=== PATIENT | female | born 1970 | race Caucasian/White ===

== ENCOUNTER 2019-05-13 07:39 | Emergency (ER) | payer OTHER, SELFPAY ==
[2019-05-13 07:21] VITALS: BMI 25.0
[2019-05-13 07:40] VITALS: BP 152/94; PULSE 80; RESP 18; TEMP 36.8; O2SAT 97; BMI 25.0
--- NOTE | 2019-05-13 07:49 | RAD_ITS ---
STUDY: X-RAY - LEFT FOOT CLINICAL: Laceration of the dorsal distal foot, difficulty moving toes. TECHNIQUE: 3 view(s) of the foot. COMPARISON: None. FINDINGS: Normal talus, calcaneus, and tarsal bones. Normal visualized subtalar, talonavicular, calcaneocuboid, tarsal and tarsometatarsal articulations. Normal metatarsi. There is a marginal osteophyte of the lateral aspect of the first metatarsal head without joint space narrowing of the metatarsophalangeal joint of the great toe. Normal tibial and fibular sesamoid bones. Normal interphalangeal joint of the great toe. Normal phalanges of the great toe. Normal second through fifth metatarsophalangeal joints. Normal interphalangeal joints and phalanges of the lesser toes. The soft tissue structures are unremarkable. RAD/Foot min 3 Views IMPRESSION: Osteophyte of the first metatarsal head. Otherwise, unremarkable x-ray examination of the left foot. Electronically Signed: Herminio Florentino MD at 8:49 EST Tel , Service support ,
[2019-05-13 08:05] LABS: Hematocrit 40.1 % (37-47); Hemoglobin 13.5 g/dL (12.0-15.0); Mean Corp Hgb Conc 33.7 g/dL (32-36); Mean Corpuscular Hgb 30.3 pg (27.0-32.0); Mean Corpuscular Volume 90.1 fL (81-99); Mean Platelet Vol. 10.1 fl (6.2-12.0); Platelet Count 317 K/mm3 (150-450); RBC Distribution Width CV 12.5 % (11.6-14.6); RBC Distribution Width SD 41.2 fl (35.1-43.9); Red Blood Count 4.45 M/mm3 (4.2-5.4); White Blood Count 9.5 K/mm3 (4.4-11.0)
[2019-05-13] MEDS: Diphth,Pertuss(Acell),Tet Vac 0.5 ML Vial IM (08:15)
[2019-05-13 08:16] LABS: Anion Gap 5 (5-15); BUN 11 mg/dL (7-18); BUN/Creat Ratio 13.6 RATIO (10-20); Calcium,Total 8.8 mg/dL (8.5-10.1); Chloride 110 mmol/L (98-107); Creatinine, Serum 0.81 mg/dL (0.55-1.02); EST Glomerular Filtration Rate 80 mL/min (>60); Est Glom Filt Rate - Afr Amer 96 mL/min (>60); Glucose 106 mg/dL (74-106); Sodium Level 140 mmol/L (136-145)
--- NOTE | 2019-05-13 08:19 | ED.DCSUM_ITS ---
History of Present Illness Chief Complaint: Laceration Informant: Patient, Significant Other Onset: Today Context: Sudden Onset Quality: Laceration dorsal medial distal portion left foot Location: No pain Current Severity: - - None Maximum Severity: Moderate Worsened by: Initial injury Relieved by: Not applicable Associated Symptoms: Unable to move toe Narrative: Patient is a middle-aged woman with no sniffing past medical history presents with laceration dorsal surface of the distal medial dorsal left foot. Length of laceration is 3.0 cm. The left great toe is displaced plantarly. She is unable to extend. She denies altered sensation. She is on no anticoagulant. She reports no allergy to antibiotics. Last tetanus was greater than 10 years ago. - Past Medical History (1) No significant past medical history Status: Acute Past Medical History - Allergies and Home Meds Allergies/Adverse Reactions: Allergies No Known Allergies Allergy (Unverified 05/13/19 07:42) Primary Care Physician: Princess Galvan NP-C [Primary Care Provider] - Prior records reviewed: Yes Surgical History: noncontributory Lives: Spouse/ Significant Other Smoking Status: Never smoker Drugs: None Review of Systems General: Denies: Chills, Fever Musculoskeletal: Denies: Myalgias, Arthralgias, Neck pain, Back pain, Swelling, Extremity Pain Skin: Reports: Wounds. Denies: Rash, Abscess, Abrasions Neurological: Denies: Weakness, Parasthesia, Numbness Hematologic: Denies: Easy bruising, Easy bleeding Allergy: Denies: Uticaria, Swelling of the mouth Physical Exam Vital Signs/Narrative: Vital Signs Temp Pulse Resp BP Pulse Ox 05/13/19 07:40 98.3 F 80 18 152/94 H 97 Inital Vital Signs reviewed: Yes General: Well nourished, Well developed, No Acute Distress Head: Normocephalic, Atraumatic Eyes: Perrl, EOMI. Negative for: Pale conjunctiva, Scleral icterus Neck: Supple, Nontender, No JVD Cardiovascular: Regular rate, Regular rhythm Respiratory: No distress Extremities: Nontender, No edema, - - There is a transverse laceration distal dorsal medial side of the left foot. Patient is unable to extend her left great toe. There is no subungual hematoma noted. Sensations intact. Capillary refill is normal. DP and PT pulse are palpable. Skin: Normal color, No rash, Trauma Neurological: Alert, Oriented x3, Cranial nerves II-XII grossly intact, Normal Strength, Normal Sensation Psychological: Normal affect Diagnostic/Tx/Re-eval Chest X-Ray - ED: Read by ED Physician, - - Three-view x-ray of the foot was interpreted by me at 0826. There is soft tissue defect noted on the lateral. There is no foreign body, fracture or air in the joint. The soft tissue defect is over the mid third of the first metatarsal bone. 05/13/19 07:49 Xray Foot [Foot min 3 Views] [RAD] Stat Laboratory Results 05/13/19 05/13/19 07:59 07:59 WBC 9.5 RBC 4.45 Hgb 13.5 Hct 40.1 MCV 90.1 MCH 30.3 MCHC 33.7 RDW Std Deviation 41.2 RDW Coeff of Janey 12.5 Plt Count 317 MPV 10.1 Sodium 140 Potassium 4.0 Chloride 110 H Carbon Dioxide 25.0 Anion Gap 5 BUN 11 Creatinine 0.81 Estim Creat Clear Calc 81.70 Est GFR (MDRD) Af Amer 96 Est GFR (MDRD) Non-Af 80 BUN/Creatinine Ratio 13.6 Glucose 106 Calcium 8.8 Renal function is normal. CBC is unremarkable. - Medical Decision Making She sustained laceration of EPL. Unable to see the proximal or distal and. The laceration does not appear to go into the MTP joint. There is minimal tenderness to palpation over the proximal phalanx/first metatarsal. X-ray was obtained to evaluate for possible injury to the bone. Patient was made n.p.o. She received 1 g of Ancef. Case was discussed with Dr. Bailey who is on-call for podiatry. She states she would not be able to repair the tendon today. She requested to place patient in a posterior short leg plaster splint and the wound closed. She wants the patient to call and to make arrangements to repair tendon later this week. Procedures - Lacerations No standard instances Length: 1.18 in Depth: Tendon Shape: Linear Prep: Sterile Conditions, Adelia Laceration repair: Irrigated, Lidocaine Irrigated (ml): 250 Number of Sutures/[place]: 3 Suture Information: Ethilon, Simple, 5-0 - Lower Extremity Splints Lower Extremity Splint: Orthoglass, - - Posterior short leg Splint Fabrication: Fabricated Location: Left ED Disposition - Plan for ED Patient: Disposition: Home or Assisted Living Diagnosis: Laceration of left foot with tendon involvement Instructions: LACERATION, Foot Prescriptions: Cephalexin [Keflex] 250 mg PO Q8 #14 cap Transmission Status: Pending to [id number] Referrals: Princess Galvan NP-C [Primary Care Provider] - Francheska Bailey DPM [STAFF PHYSICIAN] - As soon as possible Additional Instructions: Must keep splint absolutely clean and dry. Do not place any weight on your left foot.
[2019-05-13] MEDS: Cefazolin 1 GM/50 ML BAG IV (08:47)
[2019-05-13 09:36] VITALS: BP 148/86; PULSE 77; RESP 14; O2SAT 99
== END 2019-05-13 10:01 | disposition home or self-care (01) ==
PROVIDERS: Emergency Provider Emergency Medicine; Family Provider Nurse Practitioner Family; PCP Nurse Practitioner Family
DX: S91.312A Laceration without foreign body, left foot, initial encounter (principal); S96.822A Laceration of other specified muscles and tendons at ankle and foot level, left foot, initial encounter; Y28.9XXA Contact with unspecified sharp object, undetermined intent, initial encounter; Y93.89 Activity, other specified; Y92.89 Other specified places as the place of occurrence of the external cause; Y99.8 Other external cause status
CPT/HCPCS: 12002; 29515; 73630; 80048; 85027; 90471; 90715; 96365; 99285; J7030; J7050; A4216

== ENCOUNTER 2019-05-17 12:31 | Day surgery (SDC) | payer SELFPAY ==
[2019-05-17] VITALS (10 sets, daily range): BP systolic 111–138; BP diastolic 72–91; PULSE 67–81; RESP 16; TEMP 36.4–37.5; O2SAT 97–100; BMI 25.7
[2019-05-17 13:14] LABS: Internal QC Validated? YES +Cl - CLEAR BKGD; Pregnancy, Urine Negative Negative
[2019-05-17] MEDS: Lactated Ringers 1,000 ML 80 ML IV (13:23)
[2019-05-17] MEDS: Cefazolin 2 GM in 0.9% Normal Saline 100 ML IV (13:44)
[2019-05-17] MEDS: Bupivacaine Mpf 0.5% 30 ML VIAL (14:05)
--- NOTE | 2019-05-17 14:54 | DCINST_ITS ---
Discharge Diet: No Restrictions Discharge Activity: May not drive while taking narcotic pain medications. Weight Bearing Status: No weight bearing Keep extremity elevated above heart level: Left Leg Call your doctor if your incision/area has: Continuous Slow Oozing, Sudden Increased Bleeding, Increased Pain/ Swelling, Increased Redness, Foul Smelling Discharge, Swelling at the incision site Call your doctor if you observe: Fever of 101 or Higher, Calf discomfort, Uncontrolled pain Cleanse incision/area with: Keep Dressing Clean & Dry, - - keep splint intact until follow up Allergies/Adverse Reactions: Allergies No Known Allergies Allergy (Verified 05/17/19 13:08) Medications to take at Discharge Ascorbic Acid [Vitamin C] 1,000 mg PO DAILY 05/13/19 Cephalexin [Keflex] 250 mg PO Q8 #14 cap 05/13/19 Ferrous Sulfate [Iron] 325 mg PO DAILY 05/13/19 ibuprofen 200 mg capsule 200 mg PO Q6H PRN 05/13/19 Cholecalciferol (VIT D3) [Vitamin D] 1,000 unit PO DAILY 05/16/19 Vitamin B Complex 1 ea PO DAILY 05/16/19 Primary Care Physician: Princess Galvan NP-C [Primary Care Provider] - Test Results: Test results from this visit will be discussed in further detail at your follow- up appointment, if applicable. Please Follow Up With: Francheska Bailey DPM When: [facility] in 1 week. Call [phone] sooner if questions. Proposed Discharge Date: 05/17/19
--- NOTE | 2019-05-17 14:58 | OP.PCM_ITS ---
Problem List (1) Spontaneous rupture of extensor tendon of left foot Status: Acute (2) Pain in left toe(s) Status: Acute (3) Laceration of left foot with complication Status: Acute Qualifiers: Report of Operation Date of Procedure: 05/17/19 Pre-Operative Diagnosis: laceration of left foot including extensor hallucis longus tendon Post-Operative Diagnosis: laceration of left foot including extensor hallucis longus tendon Surgery/Procedure Performed:: repair of extensor hallucis longus tendon lacerati on, left foot Description of Surgical Findings:: Hemostasis: Controlled with well-padded pneumatic left thigh tourniquet, 315 mmHg, and 22 minutes Materials: 2-0 Vicryl, 2-0 nylon, 4-0 nylon No specimens The patient tolerated the procedure and anesthesia well. She was transferred to the PACU with vital signs stable and vascular status intact to the left lower extremity. She has a splint including a hallux dorsiflexion bolster in place and will keep this intact. And tendon repair was successfully performed. Postoperative orders were entered electronically. She will be discharged home upon continued stability. grid molder: none - Surgeon: Francheska Bailey DPM. Count Room Clerk: Chip Mcintosh PGY1 Type of Anesthesia:: General, Local - Preoperative: One-to-one mixture of 1% lidocaine plain and 0.5% Marcaine plain administered in dorsal intermediate cutaneous, deep peroneal, and saphenous nerve block fashion, 10 cc Specimen's removed: none Estimated Blood Loss (mL): < 75 mL Description of Procedure: Indications: This 48-year-old female with significant past medical history of prior anemia, not current, sustained a laceration to her left foot and presented to the [facility] emergency room. This date of injury was on 05-13-2019 in which it is noted that she had lack of ability to dorsiflex the left hallux. An extensor hallucis longus tendon laceration was suspected. She denied other injuries or infection. The laceration was irrigated and and the skin was resutured with nylon. I recommended surgical repair of this tendon injury. The preoperative indication, planned procedure, possible benefits, risk, complications, and anticipated healing time management were discussed in detail with the patient. She understands and elects to proceed with surgery at this time. No guarantees were made. The informed surgical consent and limb were signed. She understands risk and complications may include but are not limited to the following: Pain, swelling, scarring, need for further surgery, recurrence, arthritis, loss of hallux function, chronic pain, numbness, blood clot, allergic reaction, loss of limb, function, life. I answered her questions. Her preoperative surgical clearance, history and physical exam, and diagnostic data including CBC, CMP were reviewed.gross abnormalities. Procedure in detail: The patient was transferred to the operating room via cart and placed on the operating room table in supine position. Final verification of the patient, surgery, limb designation was performed via the timeout procedure. Preoperative general anesthesia was administered by the anesthesia team and local anesthesia was administered by the podiatry team. IV antibiotics were administered preoperatively. The left lower extremity was prepped and draped in the usual aseptic manner. Attention was first directed to the initial laceration injury in which the sutures were removed. Blunt dissection was performed down through the deeper tissue with a hemostat. Care was taken to identify, protect, and retract any remaining neurovascular structures at this time and throughout the remainder of the surgery. Upon entry of the initial laceration site it is noted one of the dorsal medial arterial branches was severed at the time of the injury and this was not actively bleeding at this time. At this time the laceration was extended proximally laterally and distal medially utilizing initial laceration as part of the incision. The incision was extended approximately 1 1/2 cm on each end. Next the soft tissues were mobilized and the distal and proximal ends of the tendon were identified, mobilized, and tagged. No purulence, foreign body, or deep tissue necrosis was identified. The tendon edges appeared healthy without significant devitalization and end-to-end reapproximation was achieved with 2-0 nylon. It was not deemed necessary to use a tendon allograft at this time. The tendon was taken through passive range of motion of the hallux in the sagittal plane and this was gliding in a smooth manner and appeared to be stable. It was fixed in zero tension position and a bolster will be applied to the dressing to keep it in an overcorrected position to allow appropriate tendon healing. The wound was copiously irrigated with normal saline and the tourniquet was deflated at this time. Brisk capillary refill time was noted to the hallux and to the wound margins site. Deep closure was achieved with 2-0 Vicryl. The skin was next reapproximated with 4-0 nylon utilizing horizontal mattress and simple suture technique. A postoperative dressing consisting of Adaptic soaked in Betadine, gauze, Kerlix, abdominal pad, and Santos wrap were applied. Next a well-padded posterior mold with hallux dorsiflexion bolster was applied. The ankle was in neutral position while the hallux remained in an over corrected dorsiflexed position to protect the repair site. After procedure: The patient tolerated the procedure and anesthesia well. She was transported to the PACU vital signs stable and vascular status intact to the left lower extremity. She was advised to keep her splint including a bolster and postoperative dressing clean, dry, and intact until she follows up with the [facility] next week. She was advised to maintain a strict nonweightbearing status to left lower extremity with crutches or knee roller for assistance. No specimens were sent. She will follow-up at the [facility] center in 1 week. She was provided with a pain medication prescription, Shubuta, and was advised on safe and proper use. All of her postoperative orders were entered electronically. Francheska Bailey DPM, [facility] Grafts/Implants Used: none - Complications none - Admit VTE Documentation VTE Present on Admission: No VTE Mechan Device Prophylaxis: SCD's VTE Pharm Prophylaxis ordered?: No Reason prophylaxis not ordered:: Procedure Not Indicated
== END 2019-05-17 16:47 | disposition home or self-care (01) ==
LOC: SDC 12:37 → AC 12:39
PROVIDERS: Anesthesiology; Family Provider Nurse Practitioner Family; PCP Nurse Practitioner Family; Referring Provider Podiatrist; Visit Provider Podiatrist
PROC: (CPT 28208; principal; 2019-05-17 13:50)
DX: S96.122A Laceration of muscle and tendon of long extensor muscle of toe at ankle and foot level, left foot, initial encounter (principal); M66.272 Spontaneous rupture of extensor tendons, left ankle and foot; W26.0XXA Contact with knife, initial encounter
CPT/HCPCS: 28208; 81025; J7120; J2405

== ENCOUNTER → 2021-03-10 | Outpatient (CLI) | payer SELFPAY ==
--- NOTE | 2021-03-10 10:25 | EMB_PTH ---
PATIENT: BLADIMIR ALVARADO LOC: [facility] U#:[id number] AGE/SX: 50/F ROOM: RE03/10/[address]: REHAN Valenzuela : 1970 BED: DIS: 03/10/2021 SPEC #: [id number] RECD: 03/10/21 12:13 STATUS: BERNADETTE RELisa #: [id number] RONNI: 03/10/21 10:[address]: Winnie Dempsey NP DEPT: SURGICAL PATHOLOGY RECD BY: Leni Sue Tissues: Endometrium, NOS Procedures: Surgery Specimen Level IV HEADER OPERATION: Endometrial biopsy PRE-OP DIAGNOSIS: Menorrhagia TISSUE SUBMITTED: Endometrial biopsy MICROSCOPIC DIAGNOSIS Endometrial biopsy: Secretory endometrium. DELON:ascencion 03/11/2021 MICROSCOPIC DESCRIPTION Slides are reviewed. GROSS DESCRIPTION Received is one container labeled with the patient's name and not further designated. The specimen consists of multiple irregular and mucoid fragments of light merchant soft tissue that in aggregate measure 2.5 x 2 x 0.2 cm. The specimen is totally submitted in one cassette. / AM:ascencion 03/10/21 TC:4 CPT: 55843
[2021-03-15 15:22] LABS: HPV APTIMA, High Risk Negative (Negative)
== END | disposition home or self-care (01) ==
LOC: LABSPEC 12:40
PROVIDERS: Visit Provider Nurse Practitioner Women's Health
DX: N92.0 Excessive and frequent menstruation with regular cycle (principal); Z01.419 Encounter for gynecological examination (general) (routine) without abnormal findings
CPT/HCPCS: 87624; 88175; 88305; G0145

== ENCOUNTER → 2021-03-19 16:19 | Outpatient (CLI) | payer SELFPAY ==
--- NOTE | 2021-03-19 16:34 | US_ITS ---
STUDY: ULTRASOUND OF THE FEMALE PELVIS - COMPLETE REASON FOR EXAM: Female, 50 years old. Menorrhagia LMP: 03/10/2021 TECHNIQUE: Transabdominal and Transvaginal TECHNICAL QUALITY: Adequate. COMPARISON: None. FINDINGS: The uterus is retroflexed and is in a midline position. The uterus measures 11.2 x 0.6 x 7.1 cm. Normal uterine cervix. The endometrium measures 6 mm in thickness, and is hyperechoic. There is no demonstrated endometrial mass. There is a 3.9 x 3.8 x 3.8 cm fibroid I.U.D. - The patient does not have an I.U.D. The right ovary is visualized. The right ovary measures 3.1 x 2.2 x 2.1 cm. There is no right ovarian cyst or ovarian mass. There is no visualized right adnexal mass or complex lesion. There is normal arterial and normal venous vascularity. The left ovary is visualized. The left ovary measures 3.2 x 2.6 x 2.1 cm. There is a simple 2.2 cm cyst. There is normal arterial and normal venous vascularity. There is no fluid in the cul-de-sac. The pre void volume of the bladder was 539.65 ml. The post void volume of the bladder was less than 10 ml. US/Pelvic (Non ) IMPRESSION: Retroflexed uterus shows a 3.9 cm fibroid. Simple left ovarian cyst, given patient''s age, short-term follow-up recommended to assure resolution Sonographically normal bladder No demonstrated free fluid Electronically Signed: Tyrel Zuleta MD at 19:13 EDT , Service support ,
--- NOTE | 2021-03-19 16:34 | US_ITS ---
STUDY: ULTRASOUND OF THE FEMALE PELVIS - COMPLETE REASON FOR EXAM: Female, 50 years old. Menorrhagia LMP: 03/10/2021 TECHNIQUE: Transabdominal and Transvaginal TECHNICAL QUALITY: Adequate. COMPARISON: None. FINDINGS: The uterus is retroflexed and is in a midline position. The uterus measures 11.2 x 0.6 x 7.1 cm. Normal uterine cervix. The endometrium measures 6 mm in thickness, and is hyperechoic. There is no demonstrated endometrial mass. There is a 3.9 x 3.8 x 3.8 cm fibroid I.U.D. - The patient does not have an I.U.D. The right ovary is visualized. The right ovary measures 3.1 x 2.2 x 2.1 cm. There is no right ovarian cyst or ovarian mass. There is no visualized right adnexal mass or complex lesion. There is normal arterial and normal venous vascularity. The left ovary is visualized. The left ovary measures 3.2 x 2.6 x 2.1 cm. There is a simple 2.2 cm cyst. There is normal arterial and normal venous vascularity. There is no fluid in the cul-de-sac. The pre void volume of the bladder was 539.65 ml. The post void volume of the bladder was less than 10 ml. US/Transvaginal Non- IMPRESSION: Retroflexed uterus shows a 3.9 cm fibroid. Simple left ovarian cyst, given patient''s age, short-term follow-up recommended to assure resolution Sonographically normal bladder No demonstrated free fluid Electronically Signed: Tyrel Zuleta MD at 19:13 EDT , Service support ,
== END ==
PROVIDERS: Referring Provider Nurse Practitioner Women's Health; Visit Provider Nurse Practitioner Women's Health
DX: N92.0 Excessive and frequent menstruation with regular cycle (principal)
CPT/HCPCS: 76830; 76856

== ENCOUNTER → 2021-09-10 | Outpatient (CLI) | payer SELFPAY ==
--- NOTE | 2021-09-10 08:13 | EKG12_ITS ---
Test Reason : PRE OP Blood Pressure : / mmHG Vent. Rate : 076 BPM Atrial Rate : 076 BPM P-R Int : 144 ms QRS Dur : 058 ms QT Int : 380 ms P-R-T Axes : 081 085 070 degrees QTc Int : 427 ms Normal sinus rhythm Septal infarct , age undetermined , cannot be excluded Abnormal ECG Confirmed by KD VELA, GLORIA ([id number]), art editor MILAGROS YOUNGER ([id number]) on 09/13/2021 11:35:13 AM Referred By: Rosa Holder Confirmed By:GLORIA YI MD
[2021-09-10 09:01] LABS: Hemoglobin 11.4 g/dL (12.0-15.0); Mean Corp Hgb Conc 30.8 g/dL (32-36); Mean Corpuscular Hgb 23.3 pg (27.0-32.0); Mean Corpuscular Volume 75.7 fL (81-99); Mean Platelet Vol. 11.1 fl (6.2-12.0); Platelet Count 354 K/mm3 (150-450); RBC Distribution Width SD 51.3 fl (35.1-43.9); Red Blood Count 4.89 M/mm3 (4.2-5.4); White Blood Count 8.6 K/mm3 (4.4-11.0)
[2021-09-10 09:10] LABS: International Normalized Ratio 1.1; Partial Thromboplast Time 29.5 Seconds (24.1-36.2); Prothrombin Time (Protime)PT. 13.9 SECONDS (11.7-14.9)
[2021-09-10 09:25] LABS: AST(SGOT) 12 U/L (15-37); Alanine Aminotransfer ALT/SGPT 22 U/L (13-56); Albumin, Serum 3.7 g/dL (3.2-5.0); Alkaline Phosphatase 72 U/L (45-117); Globulin 4.1 g/dL (2.2-4.2); Magnesium 2.2 mg/dL (1.6-2.6); Protein, Total 7.8 g/dL (6.4-8.2)
== END | disposition home or self-care (01) ==
LOC: PAT 10-05 12:08
PROVIDERS: Anesthesiology; Referring Provider Obstetrics & Gynecology; Visit Provider Obstetrics & Gynecology
DX: Z01.812 Encounter for preprocedural laboratory examination (principal); Z20.822 Contact with and (suspected) exposure to COVID-19
CPT/HCPCS: 36415; 80076; 83735; 85027; 85610; 85730; 86850; 86900; 86901; 87426; 93005; C9803

== ENCOUNTER → 2022-09-15 | Outpatient (CLI) | payer SELFPAY ==
--- NOTE | 2022-09-15 15:29 | US_ITS ---
STUDY: ULTRASOUND OF THE FEMALE PELVIS - COMPLETE REASON FOR EXAM: Female, 51 years old. aub LMP: September 02, 2022. TECHNIQUE: Transabdominal and Transvaginal TECHNICAL QUALITY: Adequate. COMPARISON: Comparison is made with prior study March 19, 2021. FINDINGS: The uterus is anteverted and is in a midline position. The uterus measures 10.9 cm x 6.7 cm x 5.3 cm. There is a Nabothian cyst of the cervix. The endometrium measures 7 mm in thickness, and is fluid distended. Within it, there is a 5.9 mm x 6 mm echogenic nodule. This may represent a possible polyp. 2 uterine fibroids are seen. The larger is 4 cm x 4.5 cm x 3.9 cm. I.U.D. - The patient does not have an I.U.D. The right ovary is non-visualized. The left ovary is visualized. The left ovary measures 2 cm x 1.9 cm x 1.5 cm. There is no left ovarian cyst or ovarian mass. There is no visualized left adnexal mass or complex lesion. There is normal arterial and normal venous vascularity. There is no fluid in the cul-de-sac. The pre void volume of the bladder was 414 ml. US/Pelvic w/ Transvaginal IMPRESSION: Mildly enlarged uterus with evidence of the fluid filled endometrium containing an echogenic density suggestive of a polyp. There are 2 uterine fibroids. Electronically Signed: Afshin Hummel MD at 13:15 EDT ,
== END | disposition home or self-care (01) ==
PROVIDERS: Referring Provider Obstetrics & Gynecology; Visit Provider Obstetrics & Gynecology
DX: N92.1 Excessive and frequent menstruation with irregular cycle (principal)
CPT/HCPCS: 76830; 76856

== ENCOUNTER → 2022-09-21 | Outpatient (CLI) | payer SELFPAY ==
[2022-09-21 15:10] LABS: Absolute Lymphocyte Count 1.23 X10^3/uL (0.83-4.51); Absolute Neutrophil Count 11.5 X10^3/uL (2.0-7.7); Basophil# 0.06 X10^3/uL; Basophil% 0.4 % (0-1); Eosinophil# 0.06 X10^3/uL; Eosinophils% 0.4 % (0-5); Hematocrit 29.8 % (37-47); Hemoglobin 8.6 g/dL (12.0-15.0); Lymphocyte # 1.23 X10^3/ul (0.83-4.51); Lymphocyte % 8.9 % (19-41); Mean Corp Hgb Conc 28.9 g/dL (32-36); Mean Corpuscular Hgb 21.2 pg (27.0-32.0); Mean Corpuscular Volume 73.6 fL (81-99); Mean Platelet Vol. 10.5 fl (6.2-12.0); Monocyte# 0.88 X10^3/uL; Monocyte% 6.4 % (0-10); NRBC Flagged by Analyzer 0 % (0-5); Neutrophil # 11.52 X10^3/uL (2.7-7.7); Neutrophil % 83.5 % (47-70); Platelet Count 404 K/mm3 (150-450); RBC Distribution Width CV 15.9 % (11.6-14.6); RBC Distribution Width SD 42.6 fl (35.1-43.9); Red Blood Count 4.05 M/mm3 (4.2-5.4); White Blood Count 13.8 K/mm3 (4.4-11.0)
== END | disposition home or self-care (01) ==
PROVIDERS: Referring Provider Obstetrics & Gynecology; Visit Provider Obstetrics & Gynecology
DX: N92.1 Excessive and frequent menstruation with irregular cycle (principal)
CPT/HCPCS: 36415; 85025

== ENCOUNTER 2022-09-27 13:02 | Outpatient (CLI) | payer SELFPAY ==
[2022-09-27 13:11] VITALS: BP 138/78; PULSE 87; RESP 16; TEMP 36.3; O2SAT 100; BMI 27.3
[2022-09-27] MEDS: 0.9% NaCl Peripheral Flush Adult/Peds IV (13:17)
[2022-09-27] MEDS: 0.9% NaCl IVPB Med Flush (250 mL) 15 ML IV (13:26)
[2022-09-27 15:57] VITALS: BP 129/76; PULSE 83; RESP 16; TEMP 36.4
== END 2022-09-27 13:03 | disposition home or self-care (01) ==
LOC: MEDOUTP 13:03
PROVIDERS: Referring Provider Obstetrics & Gynecology; Visit Provider Obstetrics & Gynecology
DX: D64.9 Anemia, unspecified (principal)
CPT/HCPCS: 96365; J1756; J7050; A4216

== ENCOUNTER 2022-10-04 13:18 | Outpatient (CLI) | payer SELFPAY ==
[2022-10-04 13:38] VITALS: BP 125/79; PULSE 86; RESP 16
[2022-10-04] MEDS: 0.9% NaCl Peripheral Flush Adult/Peds IV (13:40)
[2022-10-04] MEDS: 0.9% NaCl IVPB Med Flush (250 mL) 15 ML IV (13:45)
[2022-10-04 15:22] VITALS: BP 121/75; PULSE 78; RESP 16; O2SAT 100
== END 2022-10-04 13:19 | disposition home or self-care (01) ==
PROVIDERS: Referring Provider Obstetrics & Gynecology; Visit Provider Obstetrics & Gynecology
DX: D64.9 Anemia, unspecified (principal)
CPT/HCPCS: 96365; 96366; J1756; J7050; A4216

== ENCOUNTER 2022-10-11 13:14 | Outpatient (CLI) | payer SELFPAY ==
[2022-10-11] MEDS: 0.9% NaCl IVPB Med Flush (250 mL) 15 ML IV (13:24)
[2022-10-11] MEDS: 0.9% NaCl Peripheral Flush Adult/Peds IV (13:26)
[2022-10-11 13:28] VITALS: BP 148/81; PULSE 89; RESP 14; TEMP 36.8; O2SAT 100; BMI 27.3
[2022-10-11 15:15] VITALS: BP 119/74; PULSE 81; RESP 16; O2SAT 99
== END 2022-10-11 13:15 | disposition home or self-care (01) ==
PROVIDERS: Referring Provider Obstetrics & Gynecology; Visit Provider Obstetrics & Gynecology
DX: D64.9 Anemia, unspecified (principal)
CPT/HCPCS: 96365; 96366; J1756; J7050; A4216

== ENCOUNTER 2022-11-01 10:37 | Day surgery (SDC) | payer SELFPAY ==
--- NOTE | 2022-10-26 09:21 | EKG12_ITS ---
Test Reason : PRE OP Blood Pressure : / mmHG Vent. Rate : 093 BPM Atrial Rate : 093 BPM P-R Int : 134 ms QRS Dur : 064 ms QT Int : 348 ms P-R-T Axes : 072 074 036 degrees QTc Int : 432 ms Normal sinus rhythm T wave abnormality, consider inferior ischemia Abnormal ECG Confirmed by VIGNESH VELA, TRAVIS ([id number]), field map editor MILAGROS YOUNGER ([id number]) on 10/27/2022 9:30:18 AM Referred By: Rosa Holder Confirmed By:TRAVIS MEDELLIN MD
[2022-10-26 09:58] LABS: Absolute Lymphocyte Count 0.79 X10^3/uL (0.83-4.51); Absolute Neutrophil Count 8.2 X10^3/uL (2.0-7.7); Basophil# 0.04 X10^3/uL; Basophil% 0.4 % (0-1); Eosinophil# 0.08 X10^3/uL; Eosinophils% 0.8 % (0-5); Hematocrit 38.6 % (37-47); Hemoglobin 11.5 g/dL (12.0-15.0); Lymphocyte # 0.79 X10^3/ul (0.83-4.51); Lymphocyte % 8.2 % (19-41); Mean Corp Hgb Conc 29.8 g/dL (32-36); Mean Corpuscular Hgb 24.6 pg (27.0-32.0); Mean Corpuscular Volume 82.7 fL (81-99); Mean Platelet Vol. 11.2 fl (6.2-12.0); Monocyte# 0.54 X10^3/uL; Monocyte% 5.6 % (0-10); NRBC Flagged by Analyzer 0 % (0-5); Neutrophil # 8.17 X10^3/uL (2.7-7.7); Neutrophil % 84.4 % (47-70); POSITIVE MORPHOLOGY YES; Platelet Count 354 K/mm3 (150-450); RBC Distribution Width CV 22.8 % (11.6-14.6); RBC Distribution Width SD 65.9 fl (35.1-43.9); Red Blood Count 4.67 M/mm3 (4.2-5.4); White Blood Count 9.7 K/mm3 (4.4-11.0)
[2022-10-26 10:35] LABS: ALB/GLOB Ratio 0.9 RATIO (0.9-2.4); AST(SGOT) 12 U/L (15-37); Alanine Aminotransfer ALT/SGPT 20 U/L (13-56); Albumin, Serum 3.5 g/dL (3.2-5.0); Alkaline Phosphatase 64 U/L (45-117); Anion Gap 3 (5-15); BUN 8 mg/dL (7-18); BUN/Creat Ratio 10.4 RATIO (10-20); Calcium,Total 8.6 mg/dL (8.5-10.1); Chloride 108 mmol/L (98-107); Creatinine, Serum 0.77 mg/dL (0.55-1.02); EST Glomerular Filtration Rate 83 mL/min (>60); Est Glom Filt Rate - Afr Amer 101 mL/min (>60); Globulin 3.8 g/dL (2.2-4.2); Glucose 121 mg/dL (74-106); Potassium 3.5 mmol/L (3.5-5.1); Protein, Total 7.3 g/dL (6.4-8.2); Sodium Level 137 mmol/L (136-145)
[2022-10-26 10:42] LABS: Differential Indicated SCAN CRITERIA MET
[2022-10-26 10:46] LABS: Prothrombin Time (Protime)PT. 13.4 SECONDS (11.7-14.9)
[2022-10-26 10:47] LABS: Partial Thromboplast Time 29.2 Seconds (24.1-36.2)
[2022-10-26 11:37] LABS: Differential Comment SCANNED
[2022-10-26 11:38] LABS: Anisocytosis 2+; Macrocytosis 1+; Microcytosis 1+
[2022-10-26 11:55] LABS: AST(SGOT) 12 U/L (15-37); Alanine Aminotransfer ALT/SGPT 16 U/L (13-56); Albumin, Serum 3.5 g/dL (3.2-5.0); Alkaline Phosphatase 65 U/L (45-117); Globulin 3.6 g/dL (2.2-4.2); Protein, Total 7.1 g/dL (6.4-8.2)
[2022-11-01] VITALS (10 sets, daily range): BP systolic 120–141; BP diastolic 74–85; PULSE 56–95; RESP 16; TEMP 36.3–37.2; O2SAT 97–100; BMI 28.5
--- NOTE | 2022-11-01 10:51 | HP.PCM_ITS ---
History and Physical Date of Admission: 11/01/22 Intake Vital Signs ? 09/27/2312:11 10/11/2312:28 10/26/2309:19 10/26/2309:20 Height 5 ft 8 in 5 ft 8 in 5 ft 8 in 5 ft 8 in Weight: ? 180 lb 186 lb ? BMI ? 27.3 28.3 ? BP ? 148/81 H 139/80 H ? Position ? Sitting ? ? Respiration ? 14 ? ? Pulse ? 89B ? ? Temp ? 98.3 F ? ? Pulse Oximetry (%) ? 100 ? ? 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 Anemia Chronic cough Easy bruising History of edema History of irregular heartbeat Non-smoker Rash Restless legs Spontaneous rupture of extensor tendon of left foot Wears glasses Surgical History? S/P tendon repair (~2019) Family History? Grandmother Breast cancer Heart diseaseMother Thyroid disorder HyperlipidemiaFather Diabetes Social History? household members:? spouse and children number of children:? 6 current occupational status:? employed current occupation:? [employer] history of recent travel:? No sexually active:? Yes Smoking Status:? Never smoker alcohol intake:? current alcohol intake frequency: holidays/special occasions only substance use type:? does not use what type of physical activity do you participate in:? none seatbelt use:? always do you feel safe at home:? Yes additional social history:? - [facility] cysto Details: ?BLADIMIR ALVARADO is a 51 year old who presents for a preoperative exam for a robotic hysterectomy due to large fibroid uterus, however she states that her menses for the last 2 cycles have been very heavy and she has felt extremely weak. She was not ready for a hysterectomy last year. her ultrasound this year compared to 18 months ago was essentially unchanged showing 2, 4 cm fibroids and a 7mm lining of a 11 cm uterus. She declines d&c, ablation, iud, or hormonal therapy. History ? ? ? 6 ? Elective abortions ? Hx Para ? ? ? 6 ? Spontaneous abortions ? Hx # Term Pregnancies ? Ectopic pregnancies ? Hx # Pregnancies ? Multiple births ? # of living children ? ? ? 6 Past Pregnancies Del. Date Name GA/Weeks Outcome Route Bth Weight Infant Gen Labor Lgth Anesthesia Del Locatn Provider FOB Unknown Vi ? 1991 ? Unknown Gustabo ? 1993 ? Unknown Christopher ? 1995 ? Unknown Suzie ? 1998 ? Unknown [place] ? 2000 ? Unknown Jim ? 2004 ? ROS Const ROS Unobtainable: All systems reviewed & are unremarkable except as noted in H Resp Resp: Reports system reviewed and no additional complaints, except as documented; Denies cough GI GI: Reports as per HPI Psych Psych: Reports system reviewed and no additional complaints, except as documented Exam Const General: cooperative, healthy appearing, comfortable and no acute distress Resp Effort & Inspection: normal respiratory effort Skin General: no rashes or lesions noted Psych Appearance: grossly normal Speech and Movement: speech and movement normal Coding Level of Care Code Off vis,est,level 4 Diagnoses Menorrhagia with irregular cycle? N92.1 Enlarged uterus? N85.2 Ovarian cyst? N83.209 Assessment and Plan Assessment and Plan (1) Menorrhagia with irregular cycle: ?Status:?Acute ?Comment: EMB WNL and US 3.9 cm fibroid, 11 cm uterus today we discussed medical treatment including nsaids, progesterone, and lysteda. we discussed surgical options including hysterectomy, ablation, and uterine artery ligation, the side effects associated with them and the risks vs benefits. ?Plan: After discussing the patient's diagnosis and treatment plan options, patient wishes to proceed with surgical management. Plan or total robotic hysterectomy, bilateral salpingectomy, cystoscopy. I have discussed with the patient the risk s, benefits, and alternatives of the procedure which include but are not limited to risks of anesthesia, bleeding, infection, possible damage to bowel, bladder, or surrounding vasculature which could lead to additional surgery to evaluate any complications.? Patient agrees to procedure and wishes to proceed.? ACOG/uptodate references given for additional information regarding procedure.? (2) Enlarged uterus: ?Status:?Acute (3) Ovarian cyst: ?Status:?Acute ?Comment:
[2022-11-01] MEDS: Acetaminophen 500 MG Tablet 1000 MG PO (11:24)
[2022-11-01] MEDS: Celecoxib 200 MG Capsule 400 MG PO (11:24)
[2022-11-01] MEDS: dexAMETHasone 4 MG/ML Vial 8 MG IV (11:25)
[2022-11-01] MEDS: Gabapentin 600 MG Tablet PO (11:25)
[2022-11-01] MEDS: Phenazopyridine 95 MG Tablet 190 MG PO (11:25)
[2022-11-01] MEDS: Magnesium 1 GM over 15 mins IV (11:30)
[2022-11-01] MEDS: Lactated Ringers 1,000 ML 40 ML IV ×2 (11:30→15:21)
[2022-11-01 12:08] LABS: Bedside Glucose 92 mg/dL (74-106)
--- NOTE | 2022-11-01 12:45 | HYST_PTH ---
PATIENT: BLADIMIR ALVARADO LOC: [facility] [place] U#:[id number] AGE/SX: 51/F ROOM: RE11/01/[address]: Dr. Rosa Holder DO : 1970 BED: DIS: 11/01/2022 SPEC #: [id number] RECD: 11/01/22 15:53 STATUS: BERNADETTE KAYE #: [id number] RONNI: 11/01/22 12:[address]: Rosa Holder DEPT: SURGICAL PATHOLOGY RECD BY: Aaliyah Naqvi ENTERED: 11/02/22 11:25 SP TYPE: HYSTERECT OTHR DR: No Primary Care Phys Tissues: Uterus, NOS Procedures: Surgery Specimen Level V HEADER OPERATION: ERAS, lap robotic hysterectomy, bilateral salpingectomy, cystoscopy PRE-OP DIAGNOSIS: Menorrhagia with irregular cycle TISSUE SUBMITTED: Uterus, cervix, bilateral fallopian tubes MICROSCOPIC DIAGNOSIS Uterus, cervix, bilateral fallopian tubes, hysterectomy and bilateral salpingectomy: Cervix ? chronic inflammation. Endometrium ? proliferative endometrium. Endometrial polyp ? benign endometrial polyp (1.0 cm in greatest dimension). Myometrium ? an intramural leiomyoma (4.0 cm in diameter). - Adenomyosis. Bilateral fallopian tubes - no pathologic diagnosis. Left paratubal cyst. SJ:rg 11/03/2022 MICROSCOPIC DESCRIPTION Slides are reviewed. GROSS DESCRIPTION Received in fixative is one container labeled with the patient's name and designated uterus, cervix, bilateral fallopian tubes. The specimen consists of a hysterectomy specimen consisting of uterus with cervix and attached bilateral fallopian tubes. The uterus with cervix weighs 321 gm and measures 13.0 x 9.0 x 8.5 cm. The serosal surface is merchant, glistening. The ectocervical mucosa is unremarkable. The external os is oval in contour. The endocervical canal measures 4.0 cm in length and the endocervical mucosa is merchant, glistening and unremarkable. The triangular endometrial cavity measures 6.5 cm in length and up to 2.5 cm in width. The endometrial cavity shows a sessile polyp measuring 1.0 cm in greatest dimension. The endometrial wall underneath the polyp is not indurated. The rest of the endometrium measures 0.1 cm in thickness. Sections of the uterine wall reveal a nodular mass in the left lateral wall measuring 4.0 cm in diameter. Sections of this mass reveal merchant whorled cut surfaces without areas of hemorrhage, necrosis or cystic degeneration. A small cyst filled with chocolate-brown material is also noted in the posterior uterine wall. The uninvolved uterine wall measures up to 3.0 cm in thickness. The right fallopian tube measures 5.5 cm in length and 0.7 cm in diameter. The fimbrial end is identified. Sections reveal unremarkable cut surfaces. The left fallopian tube is similar appearance to right and measures 6.0 cm in length and 0.5 cm in diameter. A paratubal cyst is noted measuring 1.2 cm in greatest dimension. It is filled with clear fluid. Product Management Consultant sections are submitted in 11 cassettes as follows: 1 - anterior cervix, 2 - posterior cervix, 3 & 4 - anterior uterine wall, 5 & 6 - posterior uterine wall, cyst in the uterine wall filled with chocolate-brown material, 7??endometrial polyp with underlying uterine wall, entirely submitted, 8 & 9 - nodular mass, 10 - right fallopian tube, 11 - left fallopian tube paratubal cyst. / DELON:ascencion 11/02/2022 TC:1 CPT: 19175
--- NOTE | 2022-11-01 13:37 | DCINST_ITS ---
Discharge Instructions Diet Discharge Diet: No restrictions Activity May resume sexual activity in: 6 weeks Weight Bearing Status: Full weight bearing Dressing / Incision Call your doctor if your incision/area has: Continuous Slow Oozing, Sudden Increased Bleeding, Increased Pain/ Swelling, Increased Redness and Foul Smelling Discharge Call your doctor if you observe: Fever of 101 or Higher, Using more than 1 pad per hour, Shortness of breath, Chest pain and Uncontrolled pain Suture Line Care: Avoid Pulling/Pushing and Avoid Pinching/Bending Remove Dressing in: 1 week (if present) Cleanse incision/area with: Soap & Water and Keep Dressing Clean & Dry Follow Up Care Please Follow Up With: Rosa Holder DO When: Call to make an appointment with your doctor for a postop visit in 2 and 6 weeks Test Results: Test results from this visit will be discussed in further detail at your follow- up appointment, if applicable. Discharge Plan Admission Primary Reason for Your Visit: hysterectomy Attending Provider: Rosa Holder Primary Care Provider: Care PhysicianGail Primary Discharge Orders/Prescriptions Prescriptions: New ibuprofen 800 mg tablet 800 mg PO Q8H PRN (Reason: pain) Qty: 30 0RF oxycodone-acetaminophen [Percocet] 5-325 mg tablet 1 tab PO Q4H PRN (Reason: pain) 7 Days Qty: 30 0RF Rx Instructions: 1-2 tabs q 4 hrs as needed for pain Continued ferrous sulfate 325 MG tablet 325 mg PO DAILY Other Ambulatory Orders: 12 Lead EKG (Routine) Timeframe: 20221026 Location: None Selected Ordered By: Dr. Rosa Holder Referrals / Follow Up: Care Physician,Gail Primary [Primary Care Provider] - Disposition Disposition (needs filled in before D/C Order can be placed): Home, Self Care
--- NOTE | 2022-11-01 13:39 | OP.PCM_ITS ---
Problems Associated Problem List Diagnoses (1) Status post hysterectomy: (2) Menorrhagia with irregular cycle: (3) Enlarged uterus: (4) Ovarian cyst: Report of Operation Date of Procedure: 11/01/22 (enlarged fibroid uterus, menorrhagia ) Pre-Operative Diagnosis: enlarged fibroid uterus, menorrhagia Post-Operative Diagnosis: enlarged fibroid uterus, menorrhagia Surgery/Procedure Performed:: total robotic hysterectomy, bilateral salpingectomy Description of Surgical Findings:: Findings: 14 cm size fibroid uterus, normal appearing ovaries and tubes. On exploration of the abdominal cavity the uterus, adnexa, bowel, and liver were found to be normal. Cystoscopy showed no evidence of leaking at approximately 250 cc of normal saline, positive ureteral orifices and jet flow are seen and no suture material was appreciated in the bladder. Specimens removed: Uterus and cervix, Bilateral tubes Surgeon: Rosa Holder hand candle dipper: Neelam Flores Type of Anesthesia: General Anesthesiologist: Aroldo Dinh Specimen's removed: uterus, cervix, fallopian tubes Estimated Blood Loss (mL): 75cc Description of Procedure: Reason for surgery: This is a 51-year-old who presented to my office with history of heavy menses and a large fibroid uterus. She tried conservative therapy for a year until it was not helping. The planned procedure is for a robotic hysterectomy the risks benefits and alternatives were discussed with the patient the patient had a clear understanding of the procedure and a consent form was signed. Procedure: The patient was placed in the dorsal low lithotomy position and prepped and draped in the normal sterile fashion both abdominally and in the perineum. Her legs were placed in stirrups a Li catheter was inserted into the urethra without difficulty. A weighted speculum was placed in the vagina and a single- tooth tenaculum was used to grasp the anterior lip of the cervix. An advincula uterine manipulator was inserted through the cervix without complication. It was then tied into place at the 2 and 10:00 locations on the cervix. Gloves were changed and attention was turned towards the abdomen. Approximately 23 cm above the pubic symphysis in the midline, and after Marcaine injection, a 8 mm incision was made. An 8 mm trocar was inserted through the laparoscope, then inserted into the abdomen under direct visualization using the laparoscope. Good abdominal placement was noted and no complications were appreciated. An air seal device was utilized to create pneumoperitoneum. At 12 cm lateral to the midline on the left and right sides 8 mm accessory ports were placed. Next a left upper quadrant 8 mm assistant corporate controller port site was placed. The patient was placed in steep Trendelenburg position. The robot was docked. The hysterectomy was initiated first by taking down the round ligament on each side using the vessel sealer device. The fallopian tubes were removed using the vessel sealer device by cauterizing the underlying mesosalpinx to the level of the uterus. The broad ligament was then and taken down using the vessel sealer device. Next the bladder flap was taken down without complication. This was done using monopolar cautery to the level of the cervical vaginal junction. After the bladder flap was created, uterine vessels were then isolated and cauterized using the vessel sealer device and EndoShears. At this point the uterine vessels were taken down further starting from the ascending branch, dissecting along the edges of the cervix to the level of the cervical vaginal junction with hemostasis appreciated. The cervical vaginal junction was then using monopolar cautery in a circumferential pattern across the superior aspect of the cervix. The specimen was delivered through the vagina and sent to pathology. The remaining vaginal cuff was then closed using a V lock suture. This was performed in a running technique. Excellent hemostasis was obtained and good closure was noted. Irrigation was then performed. All operative sites were noted to be hemostatic. A cystoscopy was performed with a 70 degree cystoscope through the urethra into the bladder without complication. The bladder was instilled with approximately 250 cc of normal saline. Intraoperative images were made. Ureteral orifices and jets were identified. No suture material was appreciated in the bladder. The bladder was then drained and cystoscope was removed. The abdominal cavity was again examined using the laparoscope after the robot was undocked. All operative sites were noted to be hemostatic. The trochars were removed under direct visualization without complication and pneumoperitoneum was reduced. At this point the skin was then closed using 4-0 Monocryl subcuticular stitch and sealed with surgical glue. The patient tolerated the procedure well sponge lap and needle counts were correct x2 the patient was taken to the recovery room in stable condition. Admit VTE Documentation VTE Present on Admission: No VTE Mechan Device Prophylaxis: SCD's VTE Pharm Prophylaxis ordered?: No Multi Select Codes Urinary/Genital Urinary/Genital CPT Codes: 18203 TLH+BS/O >250gr uterus
[2022-11-01] MEDS: Cefazolin 2 GM in 0.9% Normal Saline 100 ML IV (13:48)
[2022-11-01] MEDS: Bupivacaine 0.25% 30 ML Vial (14:15)
[2022-11-01] MEDS: Ondansetron 4 MG/2 ML Vial IV (15:20)
--- NOTE | 2022-11-01 19:05 | SUR.PHASEII ---
At approximately 1855, assisted to bathroom with help of . Then assisted back to bed in room. States became dizzy when up to bathroom. States would like to stay a while longer and drink more fluids before going home.
== END 2022-11-01 20:37 | disposition home or self-care (01) ==
LOC: SDC 10:43 → AC 10:44
PROVIDERS: Anesthesiology; Referring Provider Obstetrics & Gynecology; Visit Provider Obstetrics & Gynecology
PROC: 0UT90ZZ Resection of Uterus, Open Approach (ICD-10-PCS; CPT 58573; principal; 2022-11-01 12:25)
DX: N92.1 Excessive and frequent menstruation with irregular cycle (principal); N72 Inflammatory disease of cervix uteri; N84.0 Polyp of corpus uteri; D25.1 Intramural leiomyoma of uterus; N80.03 Adenomyosis of the uterus; N83.8 Other noninflammatory disorders of ovary, fallopian tube and broad ligament
CPT/HCPCS: 58573; S2900; 00840; 36415; 80053; 80076; 82962; 83735; 85025; 85610; 85730; 86850; 86900; 86901; 88307; 93005; J7120; J2405; J3475

== ENCOUNTER → 2023-02-22 | Outpatient (CLI) | payer SELFPAY ==
--- NOTE | 2023-02-22 09:50 | BI_ITS ---
MAMMOGRAPHY - BILATERAL SCREENING REASON FOR EXAM: Female, 52 years old. Routine annual screening examination. PERTINENT HISTORY: Grandmother with breast cancer. TECHNIQUE: Digital bilateral breast alicia (3D mammographic acquisition) in the CC and MLO projections. 2-D mediolateral oblique (MLO) and craniocaudad (CC) views of both breasts were obtained. CAD: Full Field Digital Mammography with Computer Added Detection was performed. COMPARISON: None. Baseline examination. FINDINGS: Breast Composition: The breasts are extremely dense, which lowers the sensitivity of mammography. There are no dominant masses or suspicious calcifications. There is a 6.5 mm x 5.7 mm well-defined nodule in the axillary region of the left breast. This may represent a lymph node. Correlation with ultrasound is recommended. No other significant abnormalities are identified. BI/SCRN MAMM (CAD)W/ALICIA BILAT IMPRESSION: 6.5 mm x 5.7 mm well-defined nodule in the axillary region of the left breast. Correlation with ultrasound is recommended. ASSESSMENT CATEGORY: BIRADS Category 0: Incomplete. Need additional imaging evaluation. A letter regarding these results will be sent to the patient by the facility within 30 days. Approximately 10% of breast cancers are not detected by mammography. A normal mammogram should not delay biopsy of a clinically suspicious abnormality. [id number] Electronically Signed: Afshin Hummel MD at 10:49 EDT ,
== END | disposition home or self-care (01) ==
LOC: OPBI 09:47
PROVIDERS: Referring Provider Obstetrics & Gynecology; Visit Provider Obstetrics & Gynecology
DX: Z12.31 Encounter for screening mammogram for malignant neoplasm of breast (principal)
CPT/HCPCS: 77063; 77067

== ENCOUNTER → 2023-02-24 | Outpatient (CLI) | payer SELFPAY ==
--- NOTE | 2023-02-24 09:32 | US_ITS ---
STUDY: ULTRASOUND BREAST - LEFT REASON FOR EXAM: Female, 52 years old. Abnormal screening mammogram. TECHNIQUE: Axial and longitudinal images of the LEFT breast were performed with a high resolution ultrasound transducer. # OF IMAGES: 8 COMPARISON: Comparison is made with prior mammogram dated February 22, 2023. FINDINGS: LEFT Breast: The mammographic abnormality corresponds to a 7 mm x 6 mm x 5 mm benign-appearing lymph node. There is also evidence of a 2.6 cm x 1.5 cm x 0.9 cm benign appearing left axillary. US/Breast Limited Unilateral IMPRESSION: The mammographic abnormality corresponds to 7 mm x 6 mm x 5 mm benign-appearing lymph node. There is a 2.67 x 1.5 cm x 0.9 cm benign appearing lymph node in the left axilla. ASSESSMENT CATEGORY: BIRADS Category 2: Benign. A letter regarding these results will be sent to the patient by the facility within 30 days. Electronically Signed: Afshin Hummel MD at 14:46 EDT ,
== END | disposition home or self-care (01) ==
PROVIDERS: Referring Provider Obstetrics & Gynecology; Visit Provider Obstetrics & Gynecology
DX: R92.8 Other abnormal and inconclusive findings on diagnostic imaging of breast (principal)
CPT/HCPCS: 76642